=== PATIENT | male | born 1935 | race African-American/Black ===

== ENCOUNTER 2019-03-22 15:19 | Emergency (ER) | payer MEDICARE, BC ==
[~2019-03-22] VITALS: Ht 175.3 cm; Wt 82.0 kg
[2019-03-22] MEDS ORDERED: ATOR10TA PO (15:36)
[2019-03-22] MEDS ORDERED: SODIUM CHLORIDE 0.9% 1,000 ML IV ONE (15:50)
[2019-03-22 16:15] LABS: BASOPHILS % 1.1 % (0.0-2.0); EOSINOPHILS % 3.5 % (0.0-5.0); HEMATOCRIT. 41.4 % (42.0-52.0); HEMOGLOBIN. 14.3 g/dL (14.0-18.0); LYMPHOCYTES % 48.4 % (20.0-50.0); MEAN CORPUSCULAR VOLUME 92.3 fL (80.0-94.0); MEAN PLATELET VOLUME 8.6 fl (7.4-10.4); MONOCYTES % 13.4 % (2.0-8.0); NEUTROPHILS % 33.6 % (40.0-76.0); PLATELET 184 x1000/uL (130-400); RED BLOOD CELL COUNT 4.49 mill/uL (4.7-6.1); RED CELL DISTRIBUTION WIDTH 14.8 % (11.6-14.6)
[2019-03-22 16:19] LABS: CHLORIDE 104 mEq/L (98-107)
[2019-03-22 16:35] VITALS: BP 139/81
== END 2019-03-22 16:44 | disposition left against medical advice (07) ==
LOC: ER 15:19
DX: E16.2 Hypoglycemia, unspecified (principal); G45.9 Transient cerebral ischemic attack, unspecified; E78.00 Pure hypercholesterolemia, unspecified
CPT/HCPCS: 36415; 80053; 84484; 85025; 93005; 99284; J7030